=== PATIENT | female | born 1970 ===

== ENCOUNTER 2021-08-30 12:54 | Emergency (ER) | payer SELFPAY ==
[~2021-08-30] VITALS: Ht 167.6 cm; Wt 130.0 kg
[2021-08-30 13:15] VITALS: BP 152/86
== END 2021-08-30 16:05 | disposition left against medical advice (07) ==
LOC: ER 12:55
DX: M25.562 Pain in left knee (principal); Z53.21 Procedure and treatment not carried out due to patient leaving prior to being seen by health care provider